=== PATIENT | female | born 1940 | race Hispanic/Latino ===

== ENCOUNTER → 2017-09-09 | Outpatient (CLI) | payer OTHER | LOC: SHCH 09:11 | PROVIDERS: ATTEND Internal Medicine Cardiovascular Disease | DX: R94.31 Abnormal electrocardiogram [ECG] [EKG] (principal); I10 Essential (primary) hypertension | CPT/HCPCS: 93306 ==

== ENCOUNTER → 2018-03-31 | Outpatient (CLI) | payer OTHER | END | disposition home or self-care (01) | LOC: RAH 07:49 | PROVIDERS: ATTEND Family Medicine | DX: Z12.31 Encounter for screening mammogram for malignant neoplasm of breast (principal) | CPT/HCPCS: 77067 ==

== ENCOUNTER → 2019-04-06 | Outpatient (CLI) | payer OTHER | END | disposition home or self-care (01) | LOC: RAH 10:53 | PROVIDERS: ATTEND Family Medicine | DX: Z12.31 Encounter for screening mammogram for malignant neoplasm of breast (principal) | CPT/HCPCS: 77067 ==